=== PATIENT | female | born 1995 | race Caucasian/White ===

== ENCOUNTER → 2018-04-25 17:04 | Observation (INO) ==
[2018-04-25 15:32] LABS: Bilirubin,Urine Negative (Negative); Blood,Urine Negative (Negative); Clarity,Urine Cloudy (Clear); Color,Urine Yellow (Yellow); Glucose,Urine (UA) Normal (Normal); Ketones,Urine 40 mg/dL (Negative); Leukocyte Esterase,Urine Small (Negative); Nitrite,Urine Negative (Negative); PH,Urine 6.5 pH Units (5.0-8.0); Protein,Urine Trace mg/dL (Neg-Trace); Specific Gravity,Urine 1.017 (1.010-1.025); Urobilinogen,Urine Normal (Normal)
[2018-04-25 15:34] LABS: Bacteria,Urine Moderate per hpf (None-Few); Hyaline Casts,Urine None Seen per lpf (None-Few); Squamous Epithelial Cell,Urine Many per lpf (None-Few); WBC,Urine 15-30 per hpf (0-3)
[2018-04-25 16:12] LABS: Amphetamine Screen,Urine Negative ng/mL (Cutoff=1000); Barbiturate Screen,Urine Negative ng/mL (Cutoff=200)
[2018-04-25 16:13] LABS: Benzodiazepines Screen,Urine Negative ng/mL (Cutoff=300); Cannabinoid Screen,Urine Negative ng/mL (Cutoff = 50); Cocaine Screen,Urine Negative ng/mL (Cutoff= 300); Opiate Screen,Urine Negative ng/mL (Cutoff=300); Phencyclidine Screen,Urine Negative ng/mL (Cutoff=25); RBC,Urine 0-3 per hpf (0-3)
--- NOTE | 2018-04-25 16:45 | Discharge Summary ---
Date of Encounter: 04/25/18 Time of Encounter: 16:45 - Discharge Diagnosis (1) 30 weeks gestation of Priority: Secondary Status: Acute Comments: admitted for observation (2) Gestational diabetes Priority: Secondary Status: Acute Comments: Patient recently diagnosed Patient educated on how to use accucheck machine Qualifiers: Gestational diabetes mellitus control: diet-controlled Trimester: third trimester Qualified Code(s): O24.410 - Gestational diabetes mellitus in , diet controlled - Discharge Medications Home Medications: Vits96/Iron Fum/Folic [ Tablet] 1 tab PO DAILY 04/25/18 [ History] Allergies/Adverse Reactions: 3 Allergy/AdvReac Type Severity Reaction Status Date / Time Penicillins Allergy Intermediate Rash Verified 02/01/17 14:32 Data Procedures and tests throughout hospitalization: Laboratory Tests 04/25/18 04/25/18 04/25/18 14:36 14:45 14:45 POC Glucose 80 Urine Color Yellow Urine Clarity Cloudy A Urine pH 6.5 Ur Specific [place] 1.017 Urine Protein Trace Urine Glucose (UA) Normal Urine Ketones 40 H Urine Blood Negative Urine Nitrite Negative Urine Bilirubin Negative Urine Urobilinogen Normal Ur Leukocyte Esterase Small H Urine Microscopic RBC 0-3 Urine Microscopic WBC 15-30 H Ur Squamous Epith Cells Many H Urine Bacteria Moderate H Hyaline Casts None Seen Ur Culture Indicated? NO. A Urine Opiates Screen Negative Ur Barbiturates Screen Negative Ur Phencyclidine Scrn Negative Ur Amphetamines Screen Negative U Benzodiazepines Scrn Negative Urine Cocaine Screen Negative U Marijuana (THC) Screen Negative Ur Drug Screen Interp See Below Labs on day of discharge: Labs from last 24 hours 04/25/18 04/25/18 04/25/18 14:45 14:45 14:36 POC Glucose 80 Urine Color Yellow Urine Clarity Cloudy A Urine pH 6.5 Ur Specific [place] 1.017 Urine Protein Trace Urine Glucose (UA) Normal Urine Ketones 40 H Urine Blood Negative Urine Nitrite Negative Urine Bilirubin Negative Urine Urobilinogen Normal Ur Leukocyte Esterase Small H Urine Microscopic RBC 0-3 Urine Microscopic WBC 15-30 H Ur Squamous Epith Cells Many H Urine Bacteria Moderate H Hyaline Casts None Seen Ur Culture Indicated? NO. A Urine Opiates Screen Negative Ur Barbiturates Screen Negative Ur Phencyclidine Scrn Negative Ur Amphetamines Screen Negative U Benzodiazepines Scrn Negative Urine Cocaine Screen Negative U Marijuana (THC) Screen Negative Ur Drug Screen Interp See Below Date of admission: 04/25/18 14:17 Primary care physician: Caden Barnett MD Discharging clinician: Nayana Hines Anticipated date of discharge: 04/25/18 - Patient Status Disposition: Home, Self-Care Condition: Good Functional capacity at discharge: independent ambulation - Discharge Instructions Follow Up With: Caden Barnett MD [Primary Care Provider] - Alexis Dorsey DO [Partnered Physician] - - Diet and Activity Activity: increase activity as tolerated Diet: regular diet 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 Patient states she used a family members machine and had never used one before. Patient states [facility] was out of l[facility]. Patient reports +FM, denies contractions, LOF or VB. Upon arrival to L&D patient's accucheck was 80. Patient denies any visual disturbances or nausea. Time Attestation: Total time spent providing and/or coordinating discharge services: Time Spent: Less than 30 minutes Exam - Constitutional General appearance IM: A&O X 3, pleasant, answers questions appropriately - Respiratory Respiratory exam: Present: CTAB - Cardiovascular Cardiovascular exam IM: Present: RRR, +S1, +S2 - Extremities Exam Extremities exam IM: Present: full ROM, normal capillary refill, normal inspection - Neurological Exam Neurological exam: alert, oriented X3, reflexes normal - VTE Reasons for not Prescribing Prophylaxis: Treatment not Indicated - Low risk for VTE
== END | disposition home or self-care (01) ==
LOC: 1NENULAB
PROVIDERS: ADMIT Advanced Practice Midwife; ATTEND Advanced Practice Midwife

== ENCOUNTER → 2018-05-14 10:57 | Observation (INO) ==
[2018-05-14 10:06] LABS: Bilirubin,Urine Negative (Negative); Blood,Urine Negative (Negative); Clarity,Urine Cloudy (Clear); Color,Urine Yellow (Yellow); Glucose,Urine (UA) Normal (Normal); Ketones,Urine Negative (Negative); Leukocyte Esterase,Urine Small (Negative); Nitrite,Urine Negative (Negative); PH,Urine 7.5 pH Units (5.0-8.0); Protein,Urine Trace mg/dL (Neg-Trace); Specific Gravity,Urine 1.024 (1.010-1.025); Urobilinogen,Urine Normal (Normal)
[2018-05-14 10:09] LABS: Bacteria,Urine Many per hpf (None-Few); Hyaline Casts,Urine None Seen per lpf (None-Few); Squamous Epithelial Cell,Urine Many per lpf (None-Few)
[2018-05-14 10:14] LABS: Amphetamine Screen,Urine Negative ng/mL (Cutoff=1000); Barbiturate Screen,Urine Negative ng/mL (Cutoff=200); Benzodiazepines Screen,Urine Negative ng/mL (Cutoff=200); Cannabinoid Screen,Urine Negative ng/mL (Cutoff = 50); Cocaine Screen,Urine Negative ng/mL (Cutoff= 300); Opiate Screen,Urine Negative ng/mL (Cutoff=300); Phencyclidine Screen,Urine Negative ng/mL (Cutoff=25)
[2018-05-14 10:21] LABS: RBC,Urine 0-3 per hpf (0-3)
--- NOTE | 2018-05-14 10:47 | Discharge Summary ---
Date of Encounter: 05/14/18 Time of Encounter: 10:45 - Discharge Diagnosis (1) 33 weeks gestation of Priority: Secondary Status: Acute Comments: Follow-up with Dr. Dorsey on as scheduled labor parameters discussed Discharge home (2) Abdominal cramping affecting Priority: Primary Status: Acute Comments: UA-negative Few contractions on monitor Pt reports contractions have lessened with po hydration - Discharge Medications Home Medications: Vits96/Iron Fum/Folic [ Tablet] 1 tab PO DAILY 04/25/18 [ History] Allergies/Adverse Reactions: 3 Allergy/AdvReac Type Severity Reaction Status Date / Time Penicillins Allergy Intermediate Rash Verified 02/01/17 14:32 Data Procedures and tests throughout hospitalization: Laboratory Tests 05/14/18 05/14/18 09:53 09:53 Urine Color Yellow Urine Clarity Cloudy A Urine pH 7.5 Ur Specific [place] 1.024 Urine Protein Trace Urine Glucose (UA) Normal Urine Ketones Negative Urine Blood Negative Urine Nitrite Negative Urine Bilirubin Negative Urine Urobilinogen Normal Ur Leukocyte Esterase Small H Urine Microscopic RBC 0-3 Urine Microscopic WBC 5-15 H Ur Squamous Epith Cells Many H Urine Bacteria Many H Hyaline Casts None Seen Ur Culture Indicated? NO. A Urine Opiates Screen Negative Ur Barbiturates Screen Negative Ur Phencyclidine Scrn Negative Ur Amphetamines Screen Negative U Benzodiazepines Scrn Negative Urine Cocaine Screen Negative U Marijuana (THC) Screen Negative Ur Drug Screen Interp See Below Labs on day of discharge: Labs from last 24 hours 05/14/18 05/14/18 09:53 09:53 Urine Color Yellow Urine Clarity Cloudy A Urine pH 7.5 Ur Specific [place] 1.024 Urine Protein Trace Urine Glucose (UA) Normal Urine Ketones Negative Urine Blood Negative Urine Nitrite Negative Urine Bilirubin Negative Urine Urobilinogen Normal Ur Leukocyte Esterase Small H Urine Microscopic RBC 0-3 Urine Microscopic WBC 5-15 H Ur Squamous Epith Cells Many H Urine Bacteria Many H Hyaline Casts None Seen Ur Culture Indicated? NO. A Urine Opiates Screen Negative Ur Barbiturates Screen Negative Ur Phencyclidine Scrn Negative Ur Amphetamines Screen Negative U Benzodiazepines Scrn Negative Urine Cocaine Screen Negative U Marijuana (THC) Screen Negative Ur Drug Screen Interp See Below Date of admission: 05/14/18 09:23 Discharging clinician: Margo Majano Anticipated date of discharge: 05/14/18 - Patient Status Disposition: Home, Self-Care Condition: Good Functional capacity at discharge: independent ambulation Overall status at discharge: patient is progressing back to baseline - Discharge Instructions Follow Up With: Alexis Dorsey DO [Partnered Physician] - - Diet and Activity Activity: increase activity as tolerated Diet: regular diet 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 Sanford presents with irregular contractions starting yesterday and continuing into today. She was concerned this morning when she felt an increased amount of vaginal pressure. Urinalysis was done and found to be negative. PO hydration relieved contractions. We discussed labor precautions and increasing daily hydration. She was discharged home in stable condition. Time Attestation: Total time spent providing and/or coordinating discharge services: Time Spent: Less than 30 minutes Exam - Constitutional General appearance IM: A&O X 3 - Respiratory Respiratory exam: Present: CTAB - Cardiovascular Cardiovascular exam IM: Present: RRR, +S1, +S2 - GI/Abdominal GI/Abdominal exam IM: normal bowel sounds, no peritoneal signs - Rectal Rectal exam: deferred - Uterine Tone: Firm - Extremities Exam Extremities exam IM: Present: normal capillary refill, normal inspection, radial pulses palpable and symmetrical - Neurological Exam Neurological exam: alert, CN II-XII intact, normal gait, oriented X3, reflexes normal, no focal deficits, strengths equal and symetr throughout - VTE Reasons for not Prescribing Prophylaxis: Treatment not Indicated - Low risk for VTE
== END | disposition home or self-care (01) ==
LOC: 1NENULAB
PROVIDERS: ADMIT Obstetrics & Gynecology; ATTEND Obstetrics & Gynecology

== ENCOUNTER 2018-06-21 07:50 | Inpatient (IN) ==
[2018-06-21] MEDS ORDERED: miSOPROStol 25 MCG TABLET VG PRN (08:09)
[2018-06-21] MEDS ORDERED: Famotidine 20 MG/2 ML VIAL IVP PRN (08:09)
[2018-06-21] MEDS ORDERED: Naloxone 0.4 MG/ML INJ IVP PRN (08:09)
[2018-06-21] MEDS ORDERED: Metoclopramide 10 MG/2 ML VIAL IVP PRN (08:09)
[2018-06-21] MEDS ORDERED: *HR* Nalbuphine 10 MG/ML AMPUL IVP PRN (08:09)
[2018-06-21] MEDS ORDERED: Ondansetron 4 MG/2 ML VIAL IVP PRN (08:09)
[2018-06-21] MEDS ORDERED: Ringers Solution, Lactated 1,000 ML IVC SCH (08:15)
--- NOTE | 2018-06-21 08:42 | OB/GYN History & Physical ---
Date of Encounter: 06/21/18 Time of Encounter: 08:38 Assessment and Plan (1) and not yet delivered in third trimester Current visit: Yes Status: Acute (2) 39 weeks gestation of Current visit: Yes Status: Acute (3) Gestational diabetes Current visit: Yes Status: Acute Qualifiers: Gestational diabetes mellitus control: diet-controlled Trimester: third trimester Qualified Code(s): O24.410 - Gestational diabetes mellitus in , diet controlled (4) Elective induction of labor planned Current visit: Yes Status: Acute Patient will be induced with a Agruelles catheter and Cytotec we will augment with Pitocin if needed plan is to anticipate vaginal delivery. History of Present Illness HPI: Ms. Sanford is a 23 year old female 2 para 1 at 39-0/7 weeks by last menstrual. Equal to a 9-4/7 week ultrasound who presented for induction of labor secondary to term history of A1 gestational diabetes. Patient' was diagnosed as a gestational diabetic and has done well on diet alone. She has been seen by maternal medicine who recommended induction between 39 and 40 weeks. Patient just recently had an ultrasound placing the baby at 3387 g with an KUSH of 20 cm. Patient's been having occasional contractions but nothing that she can time no leaking of fluid good movement. Patient is GBS negative, O+, rubella positive, Varicella positive. Past Med Surg Social Fam HX - Past Medical History Source: patient, old records reviewed Medical history: non-contributory, other Additional medical history: Gestational diabetes A1 Psychiatric history: no psych history - Past Surgical History Surgical History: no surgical history - Social History Smoking Status: Former smoker Smokeless Tobacco Status: No Alcohol use: none Drug use: none Occupational status: employed Current living situation: Home - Independent Activity Level: Independent ambulation Recent Out of Country Travel Within the Last 8 Weeks: No Exposure or Possible Exposure to Illness During Travel: No - Family History Mother Hx Family Cardiac Disorders: No Hx Family Respiratory Disorders: No Hx Family Cancer: Yes (breast) Hx Family GI Disorders: No Hx Family Endocrine Disorder: No Hx Family Neuromuscular Disorders: No Hx Family Neurologic Disorders: No Hx Family HEENT Disorders: No Hx Family Autoimmune Disorders: No - Additional Family History Additional family history: Family history noncontributory at this time Obstetrical History - Pregnancies : 2 Para: 1 Term: 1 : 0 Ab's: 0 Livin Medications and Allergies Vits96/Iron Fum/Folic [ Tablet] 1 tab PO DAILY 04/25/18 [History] Allergy/AdvReac Type Severity Reaction Status Date / Time Penicillins Allergy Intermediate Rash Verified 02/01/17 14:32 Review of System OB All systems PM: reviewed and no additional remarkable complaints except as stated Exam - Constitutional Constitutional: well developed, well nourished, no acute distress, average body habitus - HEENT HEENT: EOMI, PERRL, Mucus Membranes Moist - Neck Neck exam: full ROM - Lungs Respiratory exam: CTAB - Cardiovascular Cardiovascular exam: RRR - Abdomen Abdomen: Present: bowel sounds normal, gravid (Fundal height 39 cm, heart tones 140s reactive contractions every 3-7 minutes irregular) - Cervix Dilation: 2 Effacement: 70 Station: -2 (Arguelles catheter placed to 40 mL balloon inflated followed by 25 g of Cytotec placed in the posterior cul-de-sac.) Results All other labs normal. - VTE Reasons for not Prescribing Prophylaxis: Treatment not Indicated - Low risk for VTE
[2018-06-21 08:53] LABS: Basophils % 0.2 %; Eosinophils % 0.7 %; Hematocrit 33.6 % (35.3-44.9); Hemoglobin 11.1 g/dL (11.5-15.4); Immature Granulocytes % 0.7 % (0-4); Lymphocytes # 1.2 K/mcL (0.6-4.6); Lymphocytes % 19.1 %; Mean Corpuscular Hemoglobin 29.3 pg (28.0-33.3); Mean Corpuscular Volume 88.7 fL (83.0-100.0); Mean Platelet Volume 11.5 fL (9.4-12.4); Monocytes # 0.6 K/mcL (0.0-1.3); Monocytes % 10.1 %; Neutrophils # 4.2 K/mcL (1.6-8.9); Platelet Count 119 K/mcL (140-400); Red Blood Count 3.79 M/mcL (3.82-4.97); Red Cell Distribution Width 14.4 % (11.5-14.5); Segmented Neutrophils % 69.2 %
--- NOTE | 2018-06-21 09:50 | Anesthesia Evaluation PreOp ---
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 HX Other Medical History: Denies Any Significant HX Anesthesia History: No Prior Anesthetic Complications, Past Anesthesia (previous epidural, patient states lost hearing and vision briefly and was very hypotensive.) Alcohol Use: none Drug use: none Medications and Allergies Vits96/Iron Fum/Folic [ Tablet] 1 tab PO DAILY 04/25/18 [History] Allergy/AdvReac Type Severity Reaction Status Date / Time Penicillins Allergy Intermediate Rash Verified 02/01/17 14:32 Anesthesia Results - Labs 06/21/18 08:10 06/21/18 08:25 Anesthesia Exam - HEENT Pupil (Motor): Pupils equal Mallampati: II Teeth: Normal Oral Opening: Greater than 3 - PLASTICS SPREADING MACHINE OPERATOR LOC: Oriented PLASTICS SPREADING MACHINE OPERATOR Motor: Normal RUE, Normal LUE, Normal RLE, Normal LLE, Normal Face PLASTICS SPREADING MACHINE OPERATOR Sensory: Normal: RUE, LUE, RLE, LLE, Face - Cardiac Rhythm: Regular Murmur: None - Pulmonary Breath Sounds: bilateral Clear Respiratory Effort: Symmetrical Anesthesia Assess/Plan ASA Score: 2 Level of consciousness: Cooperative, Oriented Anesthetic Plan: General, Spinal, Epidural Monitoring Plan: Standard Monitors Recovery Plan: PACU
[2018-06-21] MEDS ORDERED: EPHEDrine 50 MG/ML VIAL IVP PRN (09:57)
[2018-06-21] MEDS ORDERED: Epidural Premix (fent/bupiv) 110 ML EP SCH (10:00)
[2018-06-21] MEDS ORDERED: Lidocaine -MPF 2% 5 ML VIAL ONE (10:18)
[2018-06-21] MEDS ORDERED: Oxytocin 20 units/ LR 1000 mL 20 UNIT/1,000 ML BAG IVC SCH ×2 (12:45→20:35)
--- NOTE | 2018-06-21 13:26 | OB Labor Progress Note ---
Date of Encounter: 06/21/18 Time of Encounter: 13:25 Labor Progress Note - Subjective Subjective: Patient is doing well follow catheters out states feeling contractions but still not ready for her epidural. - Cervix Cervix: 4/80/-2 AROM clear fluid noted - Heart Tones Heart Tones: heart tones 140s reactive - Melville Melville: Contractions every 2 minutes - Plan Plan: Continue current care and anticipate vaginal delivery
--- NOTE | 2018-06-21 14:48 | Anesthesia Procedures ---
Addendum entered and electronically signed by Ermias Rees CRNA 06/21/18 21:13: Infant Delivery Date: 06/21/18 Infant Delivery Time: 18:01 Original Note: Date of Encounter: 06/21/18 Time of Encounter: 14:27 Procedures: Anesthesia - Epidural/Spinal Patient ID/Chart reviewed: Yes Patient examined: Yes OB Eval: Gestational age: term OB Eval: : 2 OB Eval: Hx Para: 1 OB Eval: Contractions: Non-stressed pattern Consent Obtained: Yes Supplemental Oxygen: None/Room Air Site Prep: Aseptic Technique, Sterile prep and drape, 0.5% Chlorhexidine/Alcohol Patient position: upright Local Anesthetic: Lidocaine 1% Amount of Local Anesthetic used: 2 Touhy Needle Gauge: 18 Touhy Needle Depth (cm): 6 Catheter Depth at Skin (cm): 10 Test Dose (1.5% Lido + Epi): Volume given (mls): 3 Test Dose Result: Negative Loading Dose: Other: 10ml from solution Loading Dose Administered: Thru Catheter Infusion Med: 0.125% Bupivacaine w/ 2 mcg/ml Fentanyl Infusion Rate (mls/hr): [address]: Tegaderm, Tape Interspace Used: L3-L4 Loss of Resistance (BERENICE): Yes (saline) Blood: Yes (first pass heme second pass down neg heme. ) CSF: No Paresthesia: No Procedure: vss though out procedure, fhr stable per rn's
[2018-06-21] MEDS ORDERED: Lidocaine/EPI 1:200k 2% PF 20 ML VIAL ONE (16:55)
--- NOTE | 2018-06-21 18:56 | OB/GYN Procedure Note ---
Delivery - Delivery Date: 06/21/18 Provider: Alexis Dorsey Intrapartum events: none Delivery induction: macedo, misoprostol Delivery augmentation: rupture of membranes, pitocin Delivery monitor: external FHT, external uterine Anesthesia: epidural Quantitated Blood Loss: 50 - (s) A Infant Delivery Date: 06/21/18 Delivery Time: 18:01 Presentation: vertex Position: RAHUL Gender: Male Viability: Viable Weight Gram: 3.205 kg at 1 minute: 7 at 5 mins: 8 Shoulder Dystocia: not encountered Specimens collected: cord blood Placenta: spontaneous Cord: 3 umbilical vessels - Repair Episiotomy: none Laceration Description: None - Complications Delivery complications: none Delivery comments: Patient is a 22-year-old 2 para 1 39-0/7 weeks who presented for induction of labor secondary to term with favorable cervix. Patient is a gestational diabetic A1 was recommended she be delivered in the 39 week range patient was brought in for the catheter was placed along with Cytotec [place] fill out a couple hours after insertion patient was 3-4 cm she was artificially ruptured clear fluid noted patient received an epidural soon after this patient progressed appropriately became complete and [facility] minutes delivering a viable male infant in right occiput anterior presentation at 1801. There was no nuchal cord, no meconium, the infant was bulb suctioned on the abdomen, Apgars were 7 at 1 minute 8 at 5 minutes infant weight was 7 lbs. 1 oz. Placenta was then delivered spontaneously with a three- vessel cord, linux systems administrator jeremías Dorsey, web production assistant Lima Barnes staff certified nurse midwife, anesthesia epidural, estimated blood loss 50 mL. Perineum cervix and vagina was well visualized intact. Patient tolerated the delivery well she will be observed 2 hours before being taken floor. - Disposition Mom disposition: stable in LDR Theresa disposition: taken to nursery
[2018-06-21] MEDS ORDERED: Acetaminophen 325 MG TABLET PO PRN (20:35)
[2018-06-21] MEDS ORDERED: Benzocaine/Menthol 56 GM AEROSOL SPRAY TP PRN (20:35)
[2018-06-21] MEDS ORDERED: Measles/Mumps/Rubella Vacc 0.5 ML VIAL SQ PRN (20:35)
[2018-06-21] MEDS ORDERED: Lanolin 7 G OINT...G. TP PRN (20:35)
[2018-06-22] MEDS: Ibuprofen 600 MG TABLET PO PRN ×4 (00:07→20:18)
[2018-06-22] MEDS: Prenatal Vit/FA 1 EACH TABLET PO SCH (08:17)
--- NOTE | 2018-06-22 09:43 | Discharge Summary ---
Date of Encounter: 06/22/18 Time of Encounter: 09:41 - Discharge Diagnosis (1) Status post vaginal delivery Priority: Primary Status: Acute Comments: Meeting PP milestones. Infant is currently in the special care nursery. Mom is pumping, Rx for pump given to mom. Discussed control and safe spacing. Pt is considering Nuva Ring vs Tubal; declines control today. Anticipate discharge today. (2) Gestational diabetes Priority: Secondary Status: Acute Comments: 6 week PP 2hr gtt Qualifiers: Gestational diabetes mellitus control: diet-controlled Trimester: third trimester Qualified Code(s): O24.410 - Gestational diabetes mellitus in , diet controlled - Discharge Medications Prescriptions: Ibuprofen [Motrin] 600 mg PO Q6HR PRN #30 tablet PRN Reason: Cramping Breast Pump [BREAST PUMP] 1 each .ROUTE AD #1 each Docusate [Colace] 100 mg PO BID #30 capsule Home Medications: Vits96/Iron Fum/Folic [ Tablet] 1 tab PO DAILY 04/25/18 [ History] Benzocaine/Menthol Mylo [Dermoplast Mylo] 1 appl TP QID PRN aerosol 06/22/18 [Rx] Breast Pump [BREAST PUMP] 1 each .ROUTE AD #1 each 06/22/18 [Rx] Docusate [Colace] 100 mg PO BID #30 capsule 06/22/18 [Rx] Ibuprofen [Motrin] 600 mg PO Q6HR PRN #30 tablet 06/22/18 [Rx] Lanolin [Lansinoh] 1 appl TP TID PRN oint...g. 06/22/18 [Rx] Vit/FA 1 each PO DAILY tablet 06/22/18 [Rx] Allergies/Adverse Reactions: Allergy/AdvReac Type Severity Reaction Status Date / Time Penicillins Allergy Intermediate Rash Verified 02/01/17 14:32 Data Procedures and tests throughout hospitalization: Laboratory Tests 06/21/18 06/21/18 06/21/18 08:10 08:25 08:39 WBC 6.0 RBC 3.79 L Hgb 11.1 L Hct 33.6 L MCV 88.7 MCH 29.3 MCHC 33.0 RDW 14.4 Plt Count 119 L MPV 11.5 Immature Gran % 0.7 Seg Neutrophils % 69.2 Lymphocytes % 19.1 Monocytes % 10.1 Eosinophils % 0.7 Basophils % 0.2 Neutrophils # 4.2 Lymphocytes # 1.2 Monocytes # 0.6 Eosinophils # 0.0 Basophils # 0.0 Glucose 101 Hep Bs Antigen Nonreactive Labs on day of discharge: Labs from last 24 hours 06/21/18 08:39 Hep Bs Antigen Nonreactive Date of admission: 06/21/18 07:50 Primary care physician: Caden Barnett MD Consults: 06/21/18 20:35 Consult to Library Paraprofessional [CONS] Routine Comment: Vaginal delivery, consult needed Discharging clinician: Lubna Reyna Anticipated date of discharge: 06/22/18 - Patient Status Disposition: Home, Self-Care Condition: Good Functional capacity at discharge: independent ambulation Overall status at discharge: patient is progressing back to baseline - Discharge Instructions Follow Up With: Caden Barnett MD [Primary Care Provider] - Alexis Dorsey DO [Partnered Physician] - - Diet and Activity Activity: increase activity as tolerated Diet: advance to your usual diet Hospital Course Reason for admission: induction of labor Delivery: Episiotomy: none Laceration: none Other procedures: none complications: none Discharge diagnosis: IUP at term delivered baby: male Hospital course: - Delivery Date: 06/21/18 Provider: Alexis Dorsey Intrapartum events: none Delivery induction: macedo, misoprostol Delivery augmentation: rupture of membranes, pitocin Delivery monitor: external FHT, external uterine Anesthesia: epidural Quantitated Blood Loss: 50 - (s) Infant A Delivery Date: 06/21/18 Infant Delivery Time: 18:01 Presentation: vertex Position: RAHUL Gender: Male Viability: Viable Weight Gram: 3.205 kg at 1 minute: 7 at 5 mins: 8 Shoulder Dystocia: not encountered Specimens collected: cord blood Placenta: spontaneous Cord: 3 umbilical vessels - Repair Episiotomy: none Laceration Description: None - Complications Delivery complications: none Delivery comments: Patient is a 22-year-old 2 para 1 39-0/7 weeks who presented for induction of labor secondary to term with favorable cervix. Patient is a gestational diabetic A1 was recommended she be delivered in the 39 week range patient was brought in for the catheter was placed along with Cytotec [place] fill out a couple hours after insertion patient was 3-4 cm she was artificially ruptured clear fluid noted patient received an epidural soon after this patient progressed appropriately became complete and pushed for approximately 5 minutes delivering a viable male in right occiput anterior presentation at 1801. There was no nuchal cord, no meconium, the was bulb suctioned on the abdomen, Apgars were 7 at 1 minute 8 at 5 minutes weight was 7 lbs. 1 oz. Placenta was then delivered spontaneously with a three-vessel cord, information services manager jeremías Dorsey, clinical research assistant Lima Barnes certified income tax preparer, anesthesia epidural, estimated blood loss 50 mL. Perineum cervix and vagina was well visualized intact. Patient tolerated the delivery well she will be observed 2 hours before being taken floor. - Disposition Mom disposition: stable in LDR disposition: taken to nursery Time Attestation: Total time spent providing and/or coordinating discharge services: Exam - Constitutional Vitals: Temp Pulse Resp BP Pulse Ox 97.8 F 91 16 104/65 97 06/22/18 09:40 06/22/18 09:40 06/22/18 09:40 06/22/18 09:40 06/22/18 09:40 General appearance IM: A&O X 3, pleasant, no acute distress - Respiratory Respiratory exam: Present: CTAB - Cardiovascular Cardiovascular exam IM: Present: RRR, +S1, +S2 - GI/Abdominal GI/Abdominal exam IM: normal bowel sounds - Uterine Tone: Firm Uterus Position: At Umbilicus - Extremities Exam Extremities exam IM: Present: normal inspection. Absent: tenderness - Neurological Exam Neurological exam: alert, oriented X3
[2018-06-23] MEDS: Ibuprofen 600 MG TABLET PO PRN (08:30)
[2018-06-23] MEDS: Prenatal Vit/FA 1 EACH TABLET PO SCH (08:30)
[2018-06-23 08:57] VITALS: BP 92/59
== END 2018-06-23 10:00 | disposition home or self-care (01) | DRG 560 ==
LOC: 1NENULAB 07:50 → 1NENUOBS 21:03
PROVIDERS: ADMIT Obstetrics & Gynecology; ATTEND Obstetrics & Gynecology

== ENCOUNTER → 2021-11-21 21:08 | Observation (INO) ==
[2021-11-21 21:35] LABS: Bacteria,Urine Few per hpf (None-Few); Bilirubin,Urine Negative (Negative); Blood,Urine Negative (Negative); Clarity,Urine Turbid (Clear); Color,Urine Yellow (Yellow); Glucose,Urine (UA) Normal (Normal); Hyaline Casts,Urine Few per lpf (None Seen); Ketones,Urine 40 mg/dL (Negative); Leukocyte Esterase,Urine Large (Negative); Mucus,Urine Few per lpf (None-Few); Nitrite,Urine Negative (Negative); PH,Urine 7.5 pH Units (5.0-8.0); Protein,Urine 50 mg/dL (Neg-Trace); RBC,Urine 0-3 per hpf (0-3); Specific Gravity,Urine 1.021 (1.010-1.025); Squamous Epithelial Cell,Urine Many per hpf (None-Few); Urobilinogen,Urine Normal (Normal); WBC,Urine 15-30 per hpf (0-3)
== END | disposition home or self-care (01) ==
LOC: 1NENULAB
PROVIDERS: ADMIT Obstetrics & Gynecology; ATTEND Obstetrics & Gynecology

== ENCOUNTER 2022-01-23 07:57 | Inpatient (IN) ==
[2022-01-23] MEDS ORDERED: Ondansetron 4 MG/2 ML VIAL IVP PRN ×3 (08:27→19:40)
[2022-01-23] MEDS ORDERED: Naloxone 0.4 MG/ML INJ IVP PRN ×2 (08:27→10:11)
[2022-01-23] MEDS ORDERED: Metoclopramide 10 MG/2 ML VIAL IVP PRN (08:27)
[2022-01-23] MEDS ORDERED: Famotidine 20 MG/2 ML VIAL IVP PRN (08:27)
[2022-01-23] MEDS ORDERED: Lidocaine 1% 20 ML MDV INFILT PRN (08:27)
[2022-01-23] MEDS ORDERED: Azithromycin 500 MG in 0.9 % Sodium Chloride 250 ML IVPB PRN (08:27)
[2022-01-23] MEDS ORDERED: miSOPROStoL 25 MCG TABLET PO PRN (08:27)
[2022-01-23] MEDS ORDERED: *HR* Nalbuphine 10 MG/ML AMPUL IV PRN (08:27)
[2022-01-23] MEDS ORDERED: Oxytocin 30 UNIT/503 ML BAG IVC SCH ×4 (08:30→19:40)
[2022-01-23] MEDS ORDERED: Ringers Solution, Lactated 1,000 ML IVC SCH ×2 (08:30→19:40)
[2022-01-23 09:26] LABS: Basophils % 0.3 %; Eosinophils # 0.1 K/mcL (0.0-0.6); Eosinophils % 0.8 %; Hematocrit 30.1 % (35.3-44.9); Hemoglobin 8.9 g/dL (11.5-15.4); Immature Granulocytes % 1.1 % (0-4); Lymphocytes # 1.2 K/mcL (0.6-4.6); Lymphocytes % 19.5 %; Mean Corpuscular HGB Conc 29.6 g/dL (31.6-35.5); Mean Corpuscular Hemoglobin 25.6 pg (28.0-33.3); Mean Corpuscular Volume 86.7 fL (83.0-100.0); Mean Platelet Volume 11.3 fL (9.4-12.4); Monocytes # 0.5 K/mcL (0.0-1.3); Monocytes % 8.7 %; Neutrophils # 4.3 K/mcL (1.6-8.9); Platelet Count 149 K/mcL (140-400); Red Blood Count 3.47 M/mcL (3.82-4.97); Red Cell Distribution Width 16.5 % (11.5-14.5); Segmented Neutrophils % 69.6 %; White Blood Count 6.1 K/mcL (4.3-11.1)
[2022-01-23 09:30] LABS: Amphetamine Screen,Urine Negative ng/mL (Cutoff=1000); Barbiturate Screen,Urine Negative ng/mL (Cutoff=200); Benzodiazepines Screen,Urine Negative ng/mL (Cutoff=200); Cannabinoid Screen,Urine Negative ng/mL (Cutoff = 50); Cocaine Screen,Urine Negative ng/mL (Cutoff= 300); Opiate Screen,Urine Negative ng/mL (Cutoff=300); Phencyclidine Screen,Urine Negative ng/mL (Cutoff=25)
[2022-01-23 09:44] LABS: Influenza A PCR Negative (Negative); Influenza B PCR Negative (Negative); Resp. Syncytial Virus PCR Negative (Negative)
[2022-01-23 09:45] LABS: SARS-CoV-2 by PCR (In House) Negative (Negative)
[2022-01-23] MEDS ORDERED: EPHEDrine 50 MG/ML VIAL IVP PRN (10:11)
[2022-01-23] MEDS ORDERED: Ropivacaine/PF 0.2% 20 ML VIAL EP ONE (10:11)
[2022-01-23] MEDS ORDERED: *HR* FentaNYL (PF) 100 MCG/2 ML VIAL EP ONE (10:11)
[2022-01-23] MEDS ORDERED: Epidural Premix (fent/bupiv) 110 ML EP SCH (10:15)
[2022-01-23] MEDS ORDERED: miSOPROStoL 25 MCG TABLET VG SCH (12:00)
[2022-01-23] MEDS ORDERED: Ropivacaine/PF 0.2% 20 ML VIAL ONE (14:51)
[2022-01-23] MEDS ORDERED: Measles/Mumps/Rubella Vacc 0.5 ML VIAL SQ PRN ×2 (16:30→19:40)
[2022-01-23] MEDS ORDERED: Benzocaine/Menthol 56 GM AEROSOL SPRAY TP PRN ×3 (16:30→19:40)
[2022-01-23] MEDS ORDERED: Acetaminophen 325 MG TABLET PO SCH (16:30)
[2022-01-23] MEDS ORDERED: Ondansetron ODT 4 MG TAB.RAPDIS SL PRN ×2 (16:30→19:40)
[2022-01-23] MEDS ORDERED: Rho Immune Globulin 1,500 UNIT SYRINGE IM PRN ×2 (16:30→19:40)
[2022-01-23] MEDS ORDERED: Lanolin 7 G OINT...G. TP PRN ×2 (16:30→19:40)
[2022-01-23] MEDS ORDERED: OXYTOCIN/RINGERS LACTATE 10 UNIT/166.6 ML BAG IVC ONE ×2 (16:30→19:40)
[2022-01-23] MEDS ORDERED: Ibuprofen 600 MG TABLET PO SCH (19:30)
[2022-01-23] MEDS: Acetaminophen 325 MG TABLET PO SCH (21:44)
[2022-01-24] MEDS: Acetaminophen 325 MG TABLET PO SCH ×3 (03:58→16:15)
[2022-01-24] MEDS ORDERED: Bupivacaine/EPI 1:200k 0.25% 50 ML VIAL ONE (05:19)
[2022-01-24] MEDS ORDERED: Prenatal Vit/FA 1 EACH TABLET PO SCH ×2 (09:00)
[2022-01-24] MEDS: Ibuprofen 600 MG TABLET PO SCH ×2 (09:51→16:15)
[2022-01-24 16:12] VITALS: BP 114/64; PULSE 92; TEMP 98; O2SAT 98
[2022-01-24] MEDS ORDERED: Ibuprofen 600 MG TABLET PO SCH (21:30)
== END 2022-01-24 17:24 | disposition home or self-care (01) | DRG 806 ==
LOC: 1NENULAB 07:57 → 1NENUOBS 19:38
PROVIDERS: ADMIT Obstetrics & Gynecology; ATTEND Obstetrics & Gynecology